=== PATIENT | female | born 1925 | race Caucasian/White ===

== ENCOUNTER 2017-04-11 13:56 | Emergency (ER) | payer MEDICARE, BC ==
[~2017-04-11] VITALS: Ht 162.6 cm; Wt 56.8 kg
[~2017-04-11 13:56] MED LIST: AGRYLIN0.5 MG PO; AMLODIPINE BESYL5 MG PO; ASPIRIN E.C. 8181 MG PO; FERROUS SULFAT325 M4 PO; HYDROXYURE500 MG/CAP PO; INDERAL 10MG10 MG PO; LASIX40 M1 PO; MINIPRESS1 M1 PO; MULTIPLE VITAM1 EACH PO; NEXIUM20 MG PO; POTASSIUM CL 220 MEQ PO; SYNTHROID RP0.1 MG PO; TYLENOL EXTRA500 M2 PO; ZOCOR20 M1 PO
[2017-04-11] MEDS ORDERED: AMLODIPINE BES2.5 MG PO (14:41)
[2017-04-11] MEDS ORDERED: AGRYLIN0.5 MG PO (14:42)
[2017-04-11] MEDS ORDERED: K-TAB20 MEQ PO (14:44)
[2017-04-11] MEDS ORDERED: RESTASIS MULTI5.5 ML OP (14:45)
[2017-04-11] MEDS ORDERED: KETOROLAC10 MG PO (16:03)
[2017-04-11 16:04] VITALS: BP 156/79
== END 2017-04-11 16:12 | disposition home or self-care (01) ==
LOC: ED 13:56
DX: S20.221A Contusion of right back wall of thorax, initial encounter (principal); I10 Essential (primary) hypertension; K21.9 Gastro-esophageal reflux disease without esophagitis; H35.52 Pigmentary retinal dystrophy; D69.6 Thrombocytopenia, unspecified; E03.9 Hypothyroidism, unspecified; W01.198A Fall on same level from slipping, tripping and stumbling with subsequent striking against other object, initial encounter; Y92.009 Unspecified place in unspecified non-institutional (private) residence as the place of occurrence of the external cause

== ENCOUNTER 2017-06-23 12:24 | Inpatient (IN) | payer MEDICARE, BC ==
[~2017-06-23] VITALS: Ht 165.1 cm; Wt 49.5 kg
[~2017-06-23 12:24] MED LIST changes: +AMLODIPINE BES2.5 MG PO; +K-TAB20 MEQ PO; +KETOROLAC10 MG PO; +RESTASIS MULTI5.5 ML OP
[2017-06-23 18:17] VITALS: BP 179/78
[2017-06-23 18:18] VITALS: BP 179/78
[2017-06-23 18:41] VITALS: BP 179/78
[2017-06-23 18:46] LABS: ALBUMIN 3.1 g/dL (3.5-5.0); BUN/CREATININE RATIO 26.1 (6.0-26.0); CALCIUM 8.8 mg/dL (8.4-10.2); POTASSIUM 3.6 mmol/L (3.6-5.0); TOTAL BILIRUBIN 0.8 mg/dL (0.2-1.3); TOTAL PROTEIN 6.1 g/dL (6.3-8.2)
[2017-06-23 20:04] LABS: HEMOGLOBIN 9.2 g/dL (12.5-16.0); MEAN CELL VOLUME 95 fl (78-100); MEAN CORPUSCULAR HEMOGLOBIN 31 pg (27-31); MEAN CORPUSCULAR HGB CONC 33 g/dL (33-37); MEAN PLATELET VOLUME 11.2 fl (7.4-10.4); RED BLOOD COUNT 2.94 M/mm3 (4.10-5.30); RED CELL DISTRIBUTION WIDTH 15.5 % (11.5-14.5); WHITE BLOOD COUNT 13.3 K/mm3 (4.8-10.8)
[2017-06-23 20:11] LABS: PLATELET COUNT 830 K/mm3 (130-400)
[2017-06-23 20:15] LABS: LYMPHOCYTE 7 % (20-51); MONOCYTE 5 % (3-10); NEUTROPHILS 88 % (42-75)
[2017-06-23 21:03] LABS: URINE APPEARANCE HAZY; URINE BILIRUBIN NEGATIVE (NEGATIVE); URINE BLOOD TRACE (NEGATIVE); URINE COLOR YELLOW; URINE GLUCOSE NEGATIVE (NEGATIVE); URINE KETONE NEGATIVE (NEGATIVE); URINE LEUKOCYTE ESTERASE NEGATIVE (NEGATIVE); URINE NITRATE NEGATIVE (NEGATIVE); URINE PROTEIN(semi-quant) 1+ mg/dL (NEGATIVE); URINE UROBILINOGEN NORMAL (NORMAL)
[2017-06-23 21:36] LABS: BAND 0 % (0-10)
[2017-06-23] MEDS ORDERED: FEOSOL325 MG PO (22:58)
[2017-06-24 06:18] VITALS: BP 108/74
[2017-06-24 18:40] VITALS: BP 157/79
[2017-06-25 06:24] VITALS: BP 163/81
[2017-06-25 17:59] VITALS: BP 149/75
[2017-06-26 06:25] VITALS: BP 156/85
[2017-06-26 18:08] VITALS: BP 138/70
[2017-06-27 06:31] VITALS: BP 139/50
[2017-06-27 18:50] VITALS: BP 141/61
[2017-06-28 05:17] LABS: MEAN CELL VOLUME 96 fl (78-100); MEAN CORPUSCULAR HEMOGLOBIN 30 pg (27-31); MEAN CORPUSCULAR HGB CONC 32 g/dL (33-37); MEAN PLATELET VOLUME 10.2 fl (7.4-10.4); RED BLOOD COUNT 2.47 M/mm3 (4.10-5.30); RED CELL DISTRIBUTION WIDTH 15.4 % (11.5-14.5)
[2017-06-28 05:52] LABS: HEMATOCRIT 23.8 % (37.0-47.0); HEMOGLOBIN 7.5 g/dL (12.5-16.0); PLATELET COUNT 1068 K/mm3 (130-400)
[2017-06-28 05:53] LABS: LYMPHOCYTE 12 % (20-51); MONOCYTE 7 % (3-10); NEUTROPHILS 75 % (42-75)
[2017-06-28 05:54] LABS: POLYCHROMASIA 1+
[2017-06-28 05:55] LABS: OVALOCYTES 1+
[2017-06-28 06:24] VITALS: BP 147/74
[2017-06-28 07:50] LABS: ALBUMIN 2.5 g/dL (3.5-5.0); BUN/CREATININE RATIO 25.7 (6.0-26.0); CALCIUM 8.8 mg/dL (8.4-10.2); POTASSIUM 3.7 mmol/L (3.6-5.0); TOTAL BILIRUBIN 0.7 mg/dL (0.2-1.3); TOTAL PROTEIN 5.1 g/dL (6.3-8.2)
[2017-06-28 18:05] VITALS: BP 137/69
[2017-06-29 06:07] VITALS: BP 165/87
[2017-06-29 18:16] VITALS: BP 136/75
[2017-06-30 06:29] VITALS: BP 175/87
[2017-06-30 18:24] VITALS: BP 141/68
[2017-07-01 06:27] VITALS: BP 158/79
[2017-07-01 18:13] VITALS: BP 146/75
[2017-07-02 05:50] VITALS: BP 162/79
[2017-07-02 17:42] VITALS: BP 128/66; BP 171/76
[2017-07-03 06:10] VITALS: BP 147/72
[2017-07-03 19:00] VITALS: BP 125/74
[2017-07-04 06:32] VITALS: BP 163/79
[2017-07-04 18:03] VITALS: BP 130/68
[2017-07-05 06:27] VITALS: BP 169/80
[2017-07-05 19:00] VITALS: BP 139/66
[2017-07-06 06:54] VITALS: BP 159/82
[2017-07-06 16:26] LABS: HEMATOCRIT 25.5 % (37.0-47.0); MEAN CELL VOLUME 95 fl (78-100); MEAN CORPUSCULAR HEMOGLOBIN 30 pg (27-31); MEAN CORPUSCULAR HGB CONC 31 g/dL (33-37); RED BLOOD COUNT 2.69 M/mm3 (4.10-5.30); RED CELL DISTRIBUTION WIDTH 15.4 % (11.5-14.5); WHITE BLOOD COUNT 7.8 K/mm3 (4.8-10.8)
[2017-07-06 16:33] LABS: PLATELET COUNT 591 K/mm3 (130-400)
[2017-07-06 17:03] LABS: BUN/CREATININE RATIO 18.3 (6.0-26.0); CALCIUM 8.8 mg/dL (8.4-10.2); POTASSIUM 3.9 mmol/L (3.6-5.0)
[2017-07-06 17:41] LABS: NEUTROPHILS 82 % (42-75)
[2017-07-06 17:42] LABS: HYPOCHROMIA 1+; LYMPHOCYTE 10 % (20-51); MONOCYTE 7 % (3-10)
[2017-07-06 18:18] VITALS: BP 139/69
[2017-07-07 06:37] VITALS: BP 152/76
[2017-07-07 18:44] VITALS: BP 146/74
[2017-07-08 06:41] VITALS: BP 167/84
[2017-07-08 18:36] VITALS: BP 146/74
[2017-07-09 06:27] VITALS: BP 158/76
[2017-07-09 11:54] VITALS: BP 152/73
[2017-07-09 18:21] VITALS: BP 142/79
[2017-07-10 06:46] VITALS: BP 153/82
[2017-07-10 17:57] VITALS: BP 133/77
[2017-07-11 06:43] VITALS: BP 144/74
[2017-07-11 18:39] VITALS: BP 140/68
[2017-07-12 06:56] VITALS: BP 116/78
[2017-07-12 17:49] VITALS: BP 134/66
[2017-07-13 06:24] VITALS: BP 138/68
[2017-07-13 18:23] VITALS: BP 134/68
[2017-07-14 06:37] VITALS: BP 145/75
[2017-07-14 18:04] VITALS: BP 126/64
[2017-07-15 06:27] VITALS: BP 147/77
[2017-07-15 18:06] VITALS: BP 125/63
[2017-07-16 06:35] VITALS: BP 136/65
[2017-07-16 18:06] VITALS: BP 120/62
[2017-07-17 06:30] VITALS: BP 151/79
[2017-07-17 18:24] VITALS: BP 121/68
[2017-07-18 06:39] VITALS: BP 138/64
[2017-07-18 17:37] VITALS: BP 133/73
[2017-07-19 06:33] VITALS: BP 121/58
[2017-07-19 08:39] LABS: EOS # 0.1 (0.04-0.40); EOS % 1.2 % (1.0-5.0); HEMATOCRIT 30.5 % (37.0-47.0); HEMOGLOBIN 9.4 g/dL (12.5-16.0); LYMPH# 1.6 (1.50-4.00); MEAN CELL VOLUME 93 fl (78-100); MEAN CORPUSCULAR HEMOGLOBIN 29 pg (27-31); MEAN CORPUSCULAR HGB CONC 31 g/dL (33-37); MEAN PLATELET VOLUME 10.9 fl (7.4-10.4); MONO # 0.6 (0.20-0.80); NEU # 4.5 (1.40-6.50); RED BLOOD COUNT 3.28 M/mm3 (4.10-5.30); RED CELL DISTRIBUTION WIDTH 16.6 % (11.5-14.5); WHITE BLOOD COUNT 6.8 K/mm3 (4.8-10.8)
[2017-07-19 08:43] LABS: PLATELET COUNT 935 K/mm3 (130-400)
[2017-07-19 08:59] LABS: ALBUMIN 3.3 g/dL (3.5-5.0); BUN/CREATININE RATIO 30.2 (6.0-26.0); CALCIUM 9.4 mg/dL (8.4-10.2); POTASSIUM 3.7 mmol/L (3.6-5.0); TOTAL BILIRUBIN 0.5 mg/dL (0.2-1.3); TOTAL PROTEIN 6.1 g/dL (6.3-8.2)
[2017-07-19 18:46] VITALS: BP 145/81
[2017-07-20 06:22] VITALS: BP 136/71
[2017-07-20 18:18] VITALS: BP 128/64
[2017-07-21 06:25] VITALS: BP 132/59
[2017-07-21 18:31] VITALS: BP 152/74
[2017-07-22 06:34] VITALS: BP 148/77
[2017-07-22 18:22] VITALS: BP 125/72
[2017-07-23 06:23] VITALS: BP 143/70
[2017-07-23 18:05] VITALS: BP 133/68
[2017-07-24 06:20] VITALS: BP 140/73
[2017-07-24 17:59] VITALS: BP 114/56
[2017-07-25 06:33] VITALS: BP 141/68
[2017-07-25 18:17] VITALS: BP 132/67
[2017-07-26 06:30] VITALS: BP 152/71
[2017-07-26 19:17] VITALS: BP 141/67
[2017-07-27 07:07] VITALS: BP 146/76
[2017-07-27 18:48] VITALS: BP 118/62
[2017-07-28 06:06] VITALS: BP 134/67
[2017-07-28 18:42] VITALS: BP 136/64
[2017-07-29 07:05] VITALS: BP 138/66
[2017-07-29 18:32] VITALS: BP 142/71
[2017-07-30 06:43] VITALS: BP 157/79
[2017-07-30 18:10] VITALS: BP 138/66
[2017-07-31 06:28] VITALS: BP 138/68
[2017-07-31 18:39] VITALS: BP 118/53
[2017-08-01 06:36] VITALS: BP 135/66
[2017-08-01 18:51] VITALS: BP 137/75
[2017-08-02 06:23] VITALS: BP 156/74
[2017-08-02 18:19] VITALS: BP 123/66
[2017-08-03 06:08] VITALS: BP 136/73
[2017-08-03 18:00] VITALS: BP 113/64
[2017-08-04 06:25] VITALS: BP 159/73
[2017-08-04 18:55] VITALS: BP 123/70
[2017-08-05 06:32] VITALS: BP 141/75
[2017-08-05 18:20] VITALS: BP 133/73
[2017-08-06 06:31] VITALS: BP 131/63
[2017-08-06 18:12] VITALS: BP 157/70
[2017-08-07 06:34] VITALS: BP 155/73
[2017-08-07 18:40] VITALS: BP 148/71
[2017-08-08 06:23] VITALS: BP 144/72
[2017-08-08 19:23] VITALS: BP 120/60
[2017-08-09 06:27] VITALS: BP 144/70
[2017-08-09 18:36] VITALS: BP 124/62
[2017-08-10 06:30] VITALS: BP 134/72
[2017-08-10 18:15] VITALS: BP 152/75
[2017-08-11 07:02] VITALS: BP 160/80
[2017-08-11 17:36] VITALS: BP 152/76
[2017-08-12 06:23] VITALS: BP 144/69
[2017-08-12 18:59] VITALS: BP 139/62
[2017-08-13 06:45] VITALS: BP 146/72
[2017-08-13 18:41] VITALS: BP 165/82
[2017-08-14 06:41] VITALS: BP 186/98
[2017-08-14 08:30] VITALS: BP 144/75
[2017-08-14 17:56] VITALS: BP 117/58
[2017-08-15 06:21] VITALS: BP 162/74
[2017-08-15 18:14] VITALS: BP 125/79
[2017-08-16 06:21] VITALS: BP 158/76
[2017-08-16 08:32] VITALS: BP 158/76
[2017-08-16] MEDS ORDERED: FERROUS SU325 MG/TAB PO (08:36)
[2017-08-16] MEDS ORDERED: ASPIRIN 32325 MG/TAB PO (08:39)
[2017-08-16] MEDS ORDERED: ESCITALOPRAM5 MG PO (08:40)
[2017-08-16] MEDS ORDERED: XANAX0.25 M1 PO (08:41)
[2017-08-16] MEDS ORDERED: MEGESTROL ACETA20 M1 PO (08:46)
[2017-08-16] MEDS ORDERED: DOCUSATE SOD100 MG PO (08:46)
== END 2017-08-16 09:46 | DRG 561 ==
LOC: MED/SURG 12:24
PROVIDERS: Physician Assistant; ADMIT Family Medicine
DX: Z47.1 Aftercare following joint replacement surgery (principal); S52.512D Displaced fracture of left radial styloid process, subsequent encounter for closed fracture with routine healing; S52.612D Displaced fracture of left ulna styloid process, subsequent encounter for closed fracture with routine healing; Z96.642 Presence of left artificial hip joint; W01.0XXD Fall on same level from slipping, tripping and stumbling without subsequent striking against object, subsequent encounter; H54.0X55 Blindness right eye category 5, blindness left eye category 5; K21.9 Gastro-esophageal reflux disease without esophagitis; S80.11XD Contusion of right lower leg, subsequent encounter; I10 Essential (primary) hypertension; D47.3 Essential (hemorrhagic) thrombocythemia
CPT/HCPCS: A4353; A4354